=== PATIENT | female | born 1965 | race African-American/Black ===

== ENCOUNTER 2017-10-31 13:27 | Emergency (ER) | payer OTHER ==
[2017-10-31] MEDS ORDERED: Morphine 10 MG/ML VIAL ONE ×2 (13:59→14:03)
== END 2017-10-31 14:33 | disposition home or self-care (01) ==
LOC: BURERS 13:27
DX: M17.12 Unilateral primary osteoarthritis, left knee (principal); G89.29 Other chronic pain; E03.9 Hypothyroidism, unspecified; F32.9 Major depressive disorder, single episode, unspecified; F17.210 Nicotine dependence, cigarettes, uncomplicated
CPT/HCPCS: 96372; J2270

== ENCOUNTER 2018-01-25 08:05 | Emergency (ER) | payer OTHER | END 2018-01-25 08:39 | disposition home or self-care (01) | LOC: BURERS 08:05 | DX: H11.31 Conjunctival hemorrhage, right eye (principal); E03.9 Hypothyroidism, unspecified; F32.9 Major depressive disorder, single episode, unspecified; F17.210 Nicotine dependence, cigarettes, uncomplicated | CPT/HCPCS: 99282 ==

== ENCOUNTER 2018-04-01 12:17 | Emergency (ER) | payer OTHER ==
[2018-04-01] MEDS ORDERED: Ketorolac Tromethamine 60 MG/2 ML VIAL ONE (12:30)
[2018-04-01] MEDS ORDERED: Acetaminophen 500 MG TAB ONE (12:39)
== END 2018-04-01 13:29 | disposition home or self-care (01) ==
LOC: BURERS 12:17
DX: G43.909 Migraine, unspecified, not intractable, without status migrainosus (principal); F31.9 Bipolar disorder, unspecified; E03.9 Hypothyroidism, unspecified; F17.210 Nicotine dependence, cigarettes, uncomplicated; Z79.899 Other long term (current) drug therapy
CPT/HCPCS: 96372; J1885

== ENCOUNTER 2018-05-16 07:22 | Emergency (ER) | payer OTHER ==
[2018-05-16] MEDS ORDERED: Ketorolac Tromethamine 30 MG/ML VIAL ONE (07:38)
[2018-05-16] MEDS ORDERED: Phenazopyridine HCl 97.5 MG TABLET ONE (07:38)
[2018-05-16] MEDS ORDERED: HYDROcodone/Acetaminophen 10/325 mg Tablet ONE (07:38)
[2018-05-16 07:47] LABS: Bilirubin Negative (Negative); Blood, Urine Large (Negative); Clarity Cloudy (Clear); Glucose, Urine (Dipstick) Negative (Negative); Leukocyte Large (Negative); Nitrite Negative (Negative); Protein, Urine (Dipstick) 100 mg/dL (Neg-Trace); Specific Gravity, Urine 1.015 (1.005-1.030); Urobilinogen 0.2 mg/dL (0.2-1.0)
[2018-05-16 07:54] LABS: RBC/HPF GREATER THAN 50-TNTC HPF (0-3)
[2018-05-16 07:55] LABS: Bacteria/HPF 1+ HPF (None Seen); Oval Fat Bodies/HPF Rare HPF (None Seen); Renal Epithelial 0-3 HPF (0-3); Squamous Epithelial 0-3 HPF (0-3); WBC/HPF 21-50 HPF (0-3)
== END 2018-05-16 08:05 | disposition home or self-care (01) ==
LOC: BURERS 07:22
DX: N39.0 Urinary tract infection, site not specified (principal); E03.9 Hypothyroidism, unspecified; F31.9 Bipolar disorder, unspecified; F17.210 Nicotine dependence, cigarettes, uncomplicated; Z79.899 Other long term (current) drug therapy
CPT/HCPCS: 81003; 81015; 87077; 87086; 87186; 96372; J1885

== ENCOUNTER 2018-06-28 18:35 | Emergency (ER) | payer OTHER ==
[2018-06-28] MEDS ORDERED: Ketorolac Tromethamine 60 MG/2 ML VIAL ONE (19:09)
[2018-06-28] MEDS ORDERED: HYDROcodone/Acetaminophen 10/325 mg Tablet ONE (19:10)
== END 2018-06-28 19:35 | disposition home or self-care (01) ==
LOC: BURERS 18:35
DX: G89.29 Other chronic pain (principal); M25.562 Pain in left knee; E03.9 Hypothyroidism, unspecified; F31.9 Bipolar disorder, unspecified; F17.210 Nicotine dependence, cigarettes, uncomplicated; Z79.891 Long term (current) use of opiate analgesic; Z79.899 Other long term (current) drug therapy
CPT/HCPCS: 96372; J1885

== ENCOUNTER 2018-12-20 07:21 | Emergency (ER) | payer OTHER ==
[2018-12-20 07:49] LABS: Bilirubin Negative (Negative); Blood, Urine Large (Negative); Clarity Turbid (Clear); Glucose, Urine (Dipstick) Negative (Negative); Leukocyte Large (Negative); Nitrite Positive (Negative); Protein, Urine (Dipstick) > or equal to 300 mg/dL (Neg-Trace); Specific Gravity, Urine 1.025 (1.005-1.030); Urobilinogen 0.2 mg/dL (0.2-1.0)
[2018-12-20 07:50] LABS: Bacteria/HPF 2+ HPF (None Seen); Renal Epithelial 0-3 HPF (0-3); Transitional Epithelial 0-3 HPF (0-3)
[2018-12-20] MEDS ORDERED: Sulfameth/Trimethoprim DS 800-160mg TAB ONE (08:01)
[2018-12-20] MEDS ORDERED: Phenazopyridine HCl 97.5 MG TABLET ONE (08:21)
== END 2018-12-20 08:25 | disposition home or self-care (01) ==
LOC: BURERS 07:21
DX: N39.0 Urinary tract infection, site not specified (principal); E03.9 Hypothyroidism, unspecified; F32.9 Major depressive disorder, single episode, unspecified; F17.210 Nicotine dependence, cigarettes, uncomplicated; Z79.899 Other long term (current) drug therapy
CPT/HCPCS: 81003; 81015; 87086; 99283

== ENCOUNTER 2019-03-18 10:30 | Emergency (ER) | payer OTHER ==
[2019-03-18] MEDS ORDERED: Ketorolac Tromethamine 30 MG/ML VIAL ONE (10:50)
[2019-03-18] MEDS ORDERED: Ondansetron ODT 4 MG TAB ONE (10:50)
[2019-03-18] MEDS ORDERED: Acetaminophen 500 MG TAB ONE (10:50)
== END 2019-03-18 10:53 | disposition home or self-care (01) ==
LOC: BURERS 10:30
DX: G43.909 Migraine, unspecified, not intractable, without status migrainosus (principal); E03.9 Hypothyroidism, unspecified; F17.210 Nicotine dependence, cigarettes, uncomplicated; Z79.899 Other long term (current) drug therapy
CPT/HCPCS: 96372; J1885; Q0162

== ENCOUNTER 2019-03-22 13:53 | Emergency (ER) | payer OTHER ==
[2019-03-22] MEDS ORDERED: AMOXicillin 250 MG CAP ONE (14:12)
[2019-03-22] MEDS ORDERED: HYDROcodone/Acetaminophen 10/325 mg Tablet ONE (14:13)
== END 2019-03-22 14:18 | disposition home or self-care (01) ==
LOC: BURERS 13:53
DX: K02.9 Dental caries, unspecified (principal); K03.81 Cracked tooth; E03.9 Hypothyroidism, unspecified; F17.210 Nicotine dependence, cigarettes, uncomplicated; Z79.899 Other long term (current) drug therapy
CPT/HCPCS: 99282

== ENCOUNTER 2019-03-23 11:12 | Emergency (ER) | payer OTHER ==
[2019-03-23] MEDS ORDERED: cefTRIAXone\\ROCEPHIN 2 GM VIAL ONE (12:11)
[2019-03-23] MEDS ORDERED: Ketorolac Tromethamine 30 MG/ML VIAL ONE (12:57)
[2019-03-23] MEDS ORDERED: HYDROcodone/Acetaminophen 10/325 mg Tablet ONE (12:57)
--- NOTE | 2019-03-23 17:05 | CT ---
CT OF THE NECK SOFT TISSUES WITH CONTRAST: 03/23/[address] of the neck was performed for evaluation of an area of swelling in the left anterior jaw. I t is apparently adjacent to an area of poor dentition. Axial slices were acquired followed by coronal and sagittal reconstructions. No focal abscess was seen. There is some soft tissue swelling just anterior to the left anterior part of the mandible near a remaining tooth in this region. Possibly a canine. While there is a little bi t of periapical lucency around the tooth, it is not excessive. No abscess was seen in the adjacent so ft tissues, nor was there any dramatic adenopathy. Poor dentition was seen otherwise but no large pe riapical abscesses were seen. The paranasal sinuses are clear. All bones appeared intact with no evid ence of bony destruction. IMPRESSION: Soft tissue swelling in the left anterior jaw at the area of interest adjacent to a remaining tooth. No large or significant drainable abscess was seen. POS: HOME
== END 2019-03-23 13:07 | disposition home or self-care (01) ==
LOC: BURERS 11:12
DX: K04.7 Periapical abscess without sinus (principal); K02.9 Dental caries, unspecified; E03.9 Hypothyroidism, unspecified; F17.210 Nicotine dependence, cigarettes, uncomplicated; Z79.899 Other long term (current) drug therapy; Z79.2 Long term (current) use of antibiotics
CPT/HCPCS: 70491; 96365; 96375; J0696; J1885

== ENCOUNTER 2019-06-20 07:29 | Emergency (ER) | payer OTHER ==
[2019-06-20 07:44] LABS: Bilirubin Small (Negative); Blood, Urine Large (Negative); Clarity Turbid (Clear); Glucose, Urine (Dipstick) Negative (Negative); Leukocyte Large (Negative); Nitrite Positive (Negative); Protein, Urine (Dipstick) > or equal to 300 mg/dL (Neg-Trace); Urobilinogen 0.2 mg/dL (Less than 2)
[2019-06-20 07:55] LABS: Bacteria/HPF 1+ HPF (None Seen); Squamous Epithelial 0-3 HPF (0-3); WBC/HPF Greater Than 50 HPF (0-3)
== END 2019-06-20 08:03 | disposition home or self-care (01) ==
LOC: BURERS 07:29
DX: N39.0 Urinary tract infection, site not specified (principal); F17.210 Nicotine dependence, cigarettes, uncomplicated; E03.9 Hypothyroidism, unspecified; F31.9 Bipolar disorder, unspecified; Z79.899 Other long term (current) drug therapy
CPT/HCPCS: 81003; 81015; 99283

== ENCOUNTER 2019-09-21 16:18 | Emergency (ER) | payer OTHER ==
[2019-09-21] MEDS ORDERED: diphenhydrAMINE 50 MG/ML VIAL ONE (17:00)
[2019-09-21] MEDS ORDERED: Ketorolac Tromethamine 30 MG/ML VIAL ONE (17:00)
[2019-09-21] MEDS ORDERED: Magnesium 2 GM/50 ML BAG (IN WATER) ONE (17:00)
[2019-09-21] MEDS ORDERED: Metoclopramide HCl 10 MG/2 ML VIAL ONE (17:00)
== END 2019-09-21 18:06 | disposition home or self-care (01) ==
LOC: BURERS 16:18
DX: G43.909 Migraine, unspecified, not intractable, without status migrainosus (principal); E03.9 Hypothyroidism, unspecified; F31.9 Bipolar disorder, unspecified; F17.210 Nicotine dependence, cigarettes, uncomplicated; Z79.899 Other long term (current) drug therapy
CPT/HCPCS: 96365; 96375; J1200; J1885; J2765; J3475

== ENCOUNTER 2020-02-01 08:20 | Emergency (ER) | payer OTHER ==
[2020-02-01 08:43] LABS: Bilirubin Negative (Negative); Blood, Urine Moderate (Negative); Clarity Cloudy (Clear); Glucose, Urine (Dipstick) Negative (Negative); Leukocyte Moderate (Negative); Nitrite Negative (Negative); Protein, Urine (Dipstick) 100 mg/dL (Neg-Trace)
[2020-02-01] MEDS ORDERED: traMADol HCl 50 MG TAB ONE (08:46)
[2020-02-01] MEDS ORDERED: Sulfameth/Trimethoprim DS 800-160mg TAB ONE (08:47)
[2020-02-01] MEDS ORDERED: Phenazopyridine HCl 97.5 MG TABLET ONE (08:47)
[2020-02-01 08:51] LABS: Bacteria/HPF Rare-Few HPF (None Seen); Transitional Epithelial 0-3 HPF (None Seen); WBC/HPF 21-50 HPF (0-3)
== END 2020-02-01 08:56 | disposition home or self-care (01) ==
LOC: BURERS 08:20
DX: N39.0 Urinary tract infection, site not specified (principal); G43.909 Migraine, unspecified, not intractable, without status migrainosus; E03.9 Hypothyroidism, unspecified; F31.9 Bipolar disorder, unspecified; F17.210 Nicotine dependence, cigarettes, uncomplicated; Z79.899 Other long term (current) drug therapy
CPT/HCPCS: 81003; 81015; 87086; 99283

== ENCOUNTER 2020-07-30 09:20 | Outpatient (CLI) | payer OTHER ==
--- NOTE | 2020-07-30 15:37 | RAD ---
RIGHT KNEE 3 VIEWS: DATE: 07/20/2020. FINDINGS: No fracture or joint effusion was seen. There may be minor medial joint space narrowing. The AP vie w raises a question of a small cyst in the distal femur, but I cannot confirm it on other views with certainty. It appears to be in the metaphyseal region. The odds this is currently significant are l ow. IMPRESSION: No acute findings. POS: HOME
--- NOTE | 2020-07-30 15:41 | RAD ---
LEFT KNEE THREE VIEWS: 07/30/20 There is some irregularity and slight sclerosis along the articular surface of the lateral femoral co ndyle. There may be the beginnings of some subchondral cysts in it. All the findings are thought to b e arthritic in nature. Some osteophytes are seen in the joint, including the patellofemoral joint. No fracture or large joint effusion was seen. IMPRESSION: Degenerative changes, especially laterally. POS: HOME
== END 2020-07-30 09:21 | disposition home or self-care (01) ==
LOC: BURRAD 09:20
PROVIDERS: ATTEND Nurse Practitioner Family
DX: M25.561 Pain in right knee (principal); M25.562 Pain in left knee; M17.12 Unilateral primary osteoarthritis, left knee

== ENCOUNTER 2021-04-10 10:32 | Outpatient (CLI) | payer OTHER | END 2021-04-10 10:33 | disposition home or self-care (01) | LOC: BURRAD 10:32 | PROVIDERS: ATTEND Nurse Practitioner Family | DX: M54.5 Low back pain (principal); M47.816 Spondylosis without myelopathy or radiculopathy, lumbar region | CPT/HCPCS: 72100 ==

== ENCOUNTER → 2022-01-15 | Emergency (ER) | payer OTHER ==
[~2022-01-15] MED LIST: Aspirin Chewable 81 MG TAB ONE; Diltiazem 125 MG/25 ML ONE; Ketorolac Tromethamine 30 MG/ML VIAL ONE; Metoclopramide HCl 10 MG/2 ML VIAL ONE; diphenhydrAMINE 50 MG/ML VIAL ONE
[2022-01-15 09:35] LABS: ALT (SGPT) 12 U/L (8-55); AST (SGOT) 16 U/L (5-34); Albumin 4.1 g/dL (3.5-5.0); Alkaline Phosphatase 98 U/L (40-110); Anion Gap 19 mmol/L (10-20); BUN (Urea Nitrogen) 8 mg/dL (9.8-20.1); Bilirubin, Total 0.3 mg/dL (0.2-1.2); Calc. Creatinine Clearance 0 mL/min (70-130); Calcium 9.9 mg/dL (7.8-10.44); Carbon Dioxide 25 mmol/L (22-29); Chloride 102 mmol/L (98-107); Globulin 3.8 g/dL (2.4-3.5); Glucose 141 mg/dL (70-105); Potassium 3.7 mmol/L (3.5-5.1); Protein, Total 7.9 g/dL (6.0-8.3); Sodium 142 mmol/L (136-145)
[2022-01-15 09:47] LABS: Hemoglobin 14.8 g/dL (12.0-16.0); Mean Corpuscular HGB CONC 32.5 g/dL (32.0-36.0); Mean Corpuscular Hemoglobin 32.2 pg (27.0-31.0); Mean Corpuscular Volume 98.9 fL (78.0-98.0); Mean Platelet Volume 9.2 fL (7.4-10.4); Platelet Count 163 thou/uL (130-400); RBC Distribution Width 11.9 % (11.5-14.5); Red Blood Cell (RBC) Count 4.61 mill/uL (4.20-5.40); White Blood Cell (WBC) Count 11.3 thou/uL (4.8-10.8)
[2022-01-15 09:50] LABS: Lymphocytes 3 % (21-51); MDiff Complete? YES; Monocytes 2 % (0-10); Neutrophil 95 % (42-75); Platelet Morphology Comment Appears Adequate; RBC Morphology Normal
[2022-01-15 22:54] LABS: SARS-CoV-2 PCR by NAA Not Detected (NotDetected)
== END | disposition short-term general hospital (02) ==
LOC: BURERS 08:41
DX: G43.909 Migraine, unspecified, not intractable, without status migrainosus (principal); I48.91 Unspecified atrial fibrillation; E03.9 Hypothyroidism, unspecified; F17.210 Nicotine dependence, cigarettes, uncomplicated; Z20.822 Contact with and (suspected) exposure to COVID-19; Z79.899 Other long term (current) drug therapy
CPT/HCPCS: 36415; 71045; 80053; 83880; 84443; 84484; 85025; 93005; 94760; 96365; 96366; 96375; 96376; J1200; J1885; J2765; U0003; U0005

== ENCOUNTER 2022-07-14 11:17 | Outpatient (CLI) | payer OTHER ==
[2022-07-14 12:37] LABS: #Lymphocytes 0.9 thou/uL (1.20-3.40); #Monocytes 0.1 thou/uL (0.11-0.59); #Neutrophils 8.1 thou/uL (1.40-6.50); %Basophils 0.2 % (0.0-1.0); %Lymphocytes 9.8 % (21.0-51.0); %Monocytes 1.3 % (0.0-10.0); %Neutrophils 88.7 % (42.0-75.0); Hemoglobin 13.2 g/dL (12.0-16.0); Mean Corpuscular HGB CONC 32.2 g/dL (32.0-36.0); Mean Corpuscular Volume 96.1 fl (78.0-98.0); Mean Platelet Volume 8.3 fL (7.4-10.4); Platelet Count 186 thou/uL (130-400); RBC Distribution Width 13.7 % (11.5-14.5); Red Blood Cell (RBC) Count 4.28 mill/uL (4.20-5.40); White Blood Cell (WBC) Count 9.1 thou/uL (4.8-10.8)
[2022-07-14 13:49] LABS: Thyroid Stimulating Hormone 0.3749 uIU/mL (0.35-4.94)
[2022-07-14 13:59] LABS: ALT (SGPT) 17 U/L (8-55); AST (SGOT) 22 U/L (5-34); Albumin 4.1 g/dL (3.5-5.0); Alkaline Phosphatase 109 U/L (40-110); Anion Gap 13 mmol/L (10-20); BUN (Urea Nitrogen) 11 mg/dL (9.8-20.1); Bilirubin, Total 0.3 mg/dL (0.2-1.2); Calc. Creatinine Clearance 0 mL/min (70-130); Calcium 9.5 mg/dL (7.8-10.44); Carbon Dioxide 24 mmol/L (22-29); Cardiac Risk 3.1 (Less than 4.5); Chloride 104 mmol/L (98-107); Cholesterol 210 mg/dl (< 200 Desired); Estimated GFR 69; Globulin 3.9 g/dL (2.4-3.5); Glucose 108 mg/dL (70-105); HDL Cholesterol 68 mg/dL (>60 Neg Risk); LDL Cholesterol, Calculated 126 mg/dL; Potassium 4.4 mmol/L (3.5-5.1); Sodium 137 mmol/L (136-145); Triglycerides 80 mg/dL (Less than 150)
[2022-07-14 16:59] LABS: Iron 87 ug/dL (50-170)
[2022-07-14 17:28] LABS: Vitamin D, 25 Hydroxy 22.9 ng/ml (> 30.0)
[2022-07-14 17:32] LABS: Ferritin 196.68 ng/mL (10-291)
== END 2022-07-14 11:18 | disposition home or self-care (01) ==
LOC: BURRAD 11:17
PROVIDERS: ATTEND Specialist
DX: R05.1 Acute cough (principal); E66.01 Morbid (severe) obesity due to excess calories
CPT/HCPCS: 36415; 71046; 80053; 80061; 82306; 82607; 82728; 82746; 83036; 83540; 83970; 84425; 84443; 84480; 85025; 87338

== ENCOUNTER 2022-11-25 06:51 | Outpatient (CLI) | payer OTHER ==
[2022-11-25 08:20] LABS: Thyroid Stimulating Hormone 7.5838 uIU/mL (0.35-4.94)
[2022-11-25 09:19] LABS: ALT (SGPT) 12 U/L (8-55); AST (SGOT) 20 U/L (5-34); Alkaline Phosphatase 73 U/L (40-110); Anion Gap 15 mmol/L (10-20); BUN (Urea Nitrogen) 10 mg/dL (9.8-20.1); Bilirubin, Total 0.4 mg/dL (0.2-1.2); Calc. Creatinine Clearance 0 mL/min (70-130); Calcium 9.7 mg/dL (7.8-10.44); Carbon Dioxide 25 mmol/L (22-29); Cardiac Risk 3.2 (Less than 4.5); Chloride 105 mmol/L (98-107); Cholesterol 213 mg/dl (< 200 Desired); Estimated GFR 62; Globulin 3.5 g/dL (2.4-3.5); Glucose 86 mg/dL (70-105); HDL Cholesterol 66 mg/dL (>60 Neg Risk); LDL Cholesterol, Calculated 125 mg/dL; Protein, Total 7.5 g/dL (6.0-8.3); Sodium 141 mmol/L (136-145); Triglycerides 109 mg/dL (Less than 150)
[2022-11-25 10:17] LABS: #Eosinphils 0.3 thou/uL (0.0-0.7); #Lymphocytes 1.7 thou/uL (1.20-3.40); #Monocytes 0.3 thou/uL (0.11-0.59); #Neutrophils 3.8 thou/uL (1.40-6.50); %Basophils 0.8 % (0.0-1.0); %Eosinophils 5.4 % (0.0-10.0); %Lymphocytes 27.3 % (21.0-51.0); %Monocytes 4.7 % (0.0-10.0); %Neutrophils 61.9 % (42.0-75.0); Hemoglobin 15.2 g/dL (12.0-16.0); Mean Corpuscular Hemoglobin 31.5 pg (27.0-31.0); Mean Corpuscular Volume 92.7 fl (78.0-98.0); Mean Platelet Volume 9.1 fL (7.4-10.4); Platelet Count 162 10x3/uL (130-400); RBC Distribution Width 13.2 % (11.5-14.5); Red Blood Cell (RBC) Count 4.84 mill/uL (4.20-5.40); White Blood Cell (WBC) Count 6.1 10x3/uL (4.8-10.8)
[2022-11-25 11:45] LABS: Free T4 (Free Thyroxine) 0.92 ng/dL (0.70-1.48)
[2022-11-25 11:47] LABS: Vitamin D, 25 Hydroxy 29.7 ng/ml (> 30.0)
== END 2022-11-25 06:52 | disposition home or self-care (01) ==
LOC: BURRAD 06:51
PROVIDERS: ATTEND Family Medicine
DX: Z01.818 Encounter for other preprocedural examination (principal); Z13.6 Encounter for screening for cardiovascular disorders; E03.9 Hypothyroidism, unspecified; E55.9 Vitamin D deficiency, unspecified
CPT/HCPCS: 36415; 71046; 80053; 80061; 82306; 84439; 84443; 85025; 93005; 93010

== ENCOUNTER 2023-03-24 05:54 | Emergency (ER) | payer OTHER ==
[2023-03-24 06:16] LABS: Bilirubin Negative (Negative); Blood, Urine Large (Negative); Glucose, Urine (Dipstick) Negative (Negative); Ketone, Urine Negative (Negative); Leukocyte Large (Negative); Nitrite Negative (Negative); Protein, Urine (Dipstick) 100 mg/dL (Neg-Trace)
[2023-03-24 06:22] LABS: Clarity Cloudy (Clear)
[2023-03-24 06:23] LABS: Bacteria/HPF 1+ HPF (None Seen); CAUTI Indications for Culture Dysuria,urgency,freq; WBC/HPF Greater Than 50 HPF (0-3)
[2023-03-24 06:24] LABS: Urine Culture Reflex Yes Yes
[2023-03-24] MEDS ORDERED: Cephalexin 250 MG CAP ONE (06:49)
== END 2023-03-24 06:54 | disposition home or self-care (01) ==
LOC: BURERS 05:54
DX: N39.0 Urinary tract infection, site not specified (principal); E03.9 Hypothyroidism, unspecified; F17.210 Nicotine dependence, cigarettes, uncomplicated
CPT/HCPCS: 81001; 87077; 87086; 87186; 99283

== ENCOUNTER 2024-05-25 11:21 | Emergency (ER) | payer OTHER | END 2024-05-25 11:57 | LOC: BURERS 11:21 | DX: B34.9 Viral infection, unspecified (principal); F17.210 Nicotine dependence, cigarettes, uncomplicated | CPT/HCPCS: 99283 ==

== ENCOUNTER 2024-09-10 10:17 | Outpatient (CLI) | payer OTHER | END 2024-09-10 10:18 | disposition home or self-care (01) | LOC: BURRAD 10:17 | PROVIDERS: ATTEND Family Medicine | DX: M17.0 Bilateral primary osteoarthritis of knee (principal) ==